=== PATIENT | female | born 1985 | race Caucasian/White ===

== ENCOUNTER 2017-10-18 20:09 | Emergency (ER) | payer OTHER ==
[2017-10-18 20:10] VITALS: BMI 23.6
[2017-10-18 20:31] VITALS: BP 121/82; PULSE 70; RESP 16; TEMP 98.1; O2SAT 99
--- NOTE | 2017-10-18 20:39 | C.PDOC ---
History Of Present Illness 32 year old female presents to the ED for evaluation of right posterior chest wall pain that has been intermittent for around 3 weeks. She states the pain is increased by movement and deep breathing. Patient also reports she had four episode of vomiting today. She currently reports nausea. She denies fever, chills, abdominal pain, and dysuria. Chief Complaint (Nursing): Back Pain History Per: Patient History/Exam Limitations: no limitations Onset/Duration Of Symptoms: Hrs, Intermittent Episodes (3 weeks ) Current Symptoms Are (Timing): Still Present Quality Of Discomfort: "Pain" Associated Symptoms: denies: Incontinence, New Weakness, New Numbness Exacerbating Factor(s): Movement, Other (deep breathing ) Additional History Per: Patient Past Medical History Reviewed: Historical Data, Nursing Documentation, Vital Signs Vital Signs: Last Vital Signs Temp 98.1 F 10/18/17 20:27 Pulse 70 10/18/17 20:27 Resp 16 10/18/17 20:27 BP 121/82 10/18/17 20:27 Pulse Ox 99 10/18/17 21:16 - Medical History PMH: No Chronic Diseases Surgical History: No Surg Hx - [facility] Procedures MANUAL ASSIST DELIV NEC (01/20/15) VACCINATION NEC (01/20/15) Family History: States: Unknown Family Hx - Social History Hx Tobacco Use: No Hx Alcohol Use: No Hx Substance Use: No - Immunization History Hx Tetanus Toxoid Vaccination: No Hx Influenza Vaccination: No Hx Pneumococcal Vaccination: No Review Of Systems Constitutional: Negative for: Fever, Chills Cardiovascular: Positive for: Chest Pain (right-posterior chest wall ) Gastrointestinal: Positive for: Nausea, Vomiting. Negative for: Abdominal Pain Genitourinary: Negative for: Dysuria Physical Exam - Physical Exam Appears: Non-toxic, No Acute Distress Skin: Normal Color, Warm, Dry Head: Atraumatic, Normacephalic Eye(s): bilateral: Normal Inspection Oral Mucosa: Moist Neck: Supple Chest: Symmetrical, No Deformity, Tenderness (to right posterior chest wall/ scapular region ) Cardiovascular: Rhythm Regular, No Murmur Respiratory: Normal Breath Sounds, No Rales, No Rhonchi, No Wheezing Gastrointestinal/Abdominal: Soft, No Tenderness, No Guarding, No Rebound Extremity: Normal ROM, Capillary Refill (less than 2 seconds ) Neurological/Psych: Oriented x3, Normal Speech, Normal Cognition Gait: Steady ED Course And Treatment - Laboratory Results Result Diagrams: 10/18/17 21:01 10/18/17 21:01 ECG: Interpreted By Me, Viewed By Me ECG Rhythm: Sinus Bradycardia ECG Interpretation: Normal, No Acute Changes Interpretation Of ECG: Sinus bradycardia, normal tracings Rate From EC O2 Sat by Pulse Oximetry: 99 (on RA) Pulse Ox Interpretation: Normal - Radiology CXR: Interpreted by Me, Viewed By Me CXR Interpretation: Yes: No Acute Disease, Other (normal chest film). No: Infiltrates Progress Note: Bloodwork, Urinalysis, CXR, and EKG ordered and reviewed. Toradol IVP, Zofran IVP, and IV Fluids administered. Disposition Counseled Patient/Family Regarding: Diagnosis - Disposition Referrals: [facility] at [facility] [Outside] Disposition: HOME/ ROUTINE Disposition Time: 21:58 Condition: STABLE Prescriptions: Cyclobenzaprine [Cyclobenzaprine HCl] 5 mg PO TID #14 tab Naproxen 375 mg PO TIDPC #20 tablet Ondansetron ODT [Zofran ODT] 1 odt PO BID PRN #6 odt PRN Reason: Nausea/Vomiting Instructions: Costochondritis, Nausea and Vomiting, Adult Forms: Gen Discharge Inst Vietnamese Print Language: PORTUGUESE - Clinical Impression Clinical Impression: Thoracic back pain, Nausea and vomiting - Scribe Statement The provider has reviewed the documentation as recorded by the Scribe (Savanah Menezes) Provider Attestation: All medical record entries made by the Scribe were at my direction and personally dictated by me. I have reviewed the chart and agree that the record accurately reflects my personal performance of the history, physical exam, medical decision making, and the department course for this patient. I have also personally directed, reviewed, and agree with the discharge instructions and disposition.
[2017-10-18] MEDS ORDERED: Sodium Chloride 0.9% 1,000 ML IV ONE (20:51)
[2017-10-18 20:52] LABS: HCG,QUALITATIVE URINE NEGATIVE (NEGATIVE)
[2017-10-18 20:54] LABS: SQUAMOUS EPITHIAL 3 /hpf (0-5); URINE BACTERIA RARE (<OCC); URINE BILIRUBIN NEGATIVE (NEGATIVE); URINE BLOOD NEGATIVE (NEGATIVE); URINE CLARITY Clear (Clear); URINE COLOR Colorless (YELLOW); URINE GLUCOSE (UA) NORMAL (Normal); URINE LEUKOCYTE ESTERASE TRACE Leu/uL (Negative); URINE PROTEIN NEGATIVE (NEGATIVE); URINE UROBILINOGEN NORMAL mg/dL (0.2-1.0)
[2017-10-18] MEDS ORDERED: Sodium Chloride 0.9% 1,000 ML ONE (20:55)
[2017-10-18 21:04] LABS: BASO # 0.1 K/uL (0.0-0.2); BASO % 0.5 % (0.0-2.0); EOS # 0.2 K/uL (0.0-0.7); EOS % 2.5 % (0.0-4.0); HEMOGLOBIN 13.3 g/dL (11.0-16.0); LYMPH # 3.3 K/uL (1.0-4.3); MEAN CELL VOLUME 82.6 fL (81.0-99.0); MEAN PLATELET VOLUME 8.5 fL (7.2-11.7); MONO # 0.6 K/uL (0.0-0.8); MONO % 5.9 % (0.0-10.0); NEUT # 5.6 K/uL (1.8-7.0); NEUT % 57.1 % (50.0-75.0); NRBC % 0.1 % (0.0-2.0); RBC 4.76 Mil/uL (3.80-5.20); RED CELL DISTRIBUTION WIDTH 14.3 % (11.5-14.5); WHITE BLOOD COUNT 9.8 K/uL (4.8-10.8)
[2017-10-18 21:13] LABS: D DIMER < 200 ng/mlDDU (0-243); INR 0.9; PARTIAL THROMBOPLASTIN TIME 28 SECONDS (21-34); PROTHROMBIN TIME 10.4 SECONDS (9.7-12.2)
[2017-10-18 21:19] LABS: ALB/GLOB RATIO 1.1 (1.0-2.1); ALBUMIN 4.3 g/dL (3.5-5.0); ALT/SGPT 15 U/L (9-52); AST/SGOT 28 U/L (14-36); BLOOD UREA NITROGEN 9 mg/dL (7-17); CALCIUM 9.2 mg/dl (8.6-10.4); GFR AFRICAN-AMERICAN > 60; GFR NON-AFRICAN AMERICAN > 60; LIPASE 288 U/L (23-300)
--- NOTE | 2017-10-19 08:51 | RAD ---
Chest x-ray two views History: Chest pain. Comparison: None available. Findings: Biapical pleural thickening. No focal infiltrate or effusion. Heart size within normal limits. Degenerative changes in the spine. Impression: No focal infiltrate or effusion.
--- NOTE | 2017-10-22 20:33 | CARD ---
APPROVED REPORT EKG Measurement Heart [id number] <Conclusion> Sinus bradycardia Otherwise normal ECG
== END 2017-10-18 22:15 | disposition home or self-care (01) ==
LOC: C.ER 20:09
DX: M54.6 Pain in thoracic spine (principal); R11.2 Nausea with vomiting, unspecified
CPT/HCPCS: 71046; 80053; 81001; 83690; 84484; 84703; 85025; 85378; 85610; 85730; 93005; 96361; 96374; 96375; 99284; J1885; J2405; J7030